=== PATIENT | female | born 1995 | race Caucasian/White ===

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

== ENCOUNTER → 2017-03-01 | Outpatient (REF) | LOC: WSOH 11:15 | DX: Z02.89 Encounter for other administrative examinations (principal) ==